=== PATIENT | male | born 1975 | race Caucasian/White ===

== ENCOUNTER → 2017-03-20 | Outpatient (CLI) | payer OTHER | END | disposition home or self-care (01) | LOC: AMB 08:55 → EDSTATUS 15:32 | PROC: 0HBHXZZ Excision of Right Upper Leg Skin, External Approach (ICD-10-PCS; principal; 2017-03-20) | DX: S71.121A Laceration with foreign body, right thigh, initial encounter (principal); W29.8XXA Contact with other powered hand tools and household machinery, initial encounter | CPT/HCPCS: 88304 ==